=== PATIENT | male | born 1950 | race Caucasian/White ===

== ENCOUNTER 2021-04-09 15:08 | Emergency (ER) | payer SELFPAY ==
[~2021-04-09] VITALS: Ht 177.8 cm; Wt 67.0 kg
[2021-04-09 15:24] VITALS: BP 129/52
--- NOTE | 2021-04-09 15:49 | NUR ---
PT BIB FAMILY VIA POV. PER PT HE WAS RECENT[facility] DIAG[facility]ED WITH [facility]. PT HERE TO REQUEST A REFERRAL FOR A SURGEON. PT DOES NOT HAVE PCP AND HAS ONGOING ABDOMINAL PAIN. PT RESTING IN [facility], [place], MONITORING IN PLACE, [place] AT THIS TIME, JO[place].
--- NOTE | 2021-04-09 16:33 | NUR ---
CARE FOR DC ONLY PROVIDED. PT SITTING UP ON GURNEY, NO ACUTE DISTRESS NOTED. NO IV TO DC. REVIEWED DC INSTRUCTIONS WITH PT, UNDERSTANDING VERBALIZED. PT LEFT AMB, GAIT STEADY.
== END 2021-04-09 16:35 | disposition home or self-care (01) ==
LOC: ED 15:51
DX: K40.91 Unilateral inguinal hernia, without obstruction or gangrene, recurrent (principal)
CPT/HCPCS: 99281